=== PATIENT | female | born 1960 | race Caucasian/White ===

== ENCOUNTER 2017-03-26 17:40 | Emergency (ER) | payer BC ==
[~2017-03-26] VITALS: Ht 165.1 cm; Wt 68.4 kg
[2017-03-26 18:44] LABS: HEMATOCRIT 45.1 % (36.0-46.0); MCH 31.1 PG (29.0-34.0); MCHC 33.7 G/DL (30.0-36.0); MCV 92.4 FL (83-99); MEAN PLAT.VOLUME 10.1 uM^3 (9.5-12.4); PLATELET COUNT 299 K/uL (156-360); RBC DIS.WIDTH-CV 11.8 % (11.8-14.6); RBC DIS.WIDTH-SD 39.7 % (39-53); RED BLOOD COUNT 4.88 M/uL (3.80-5.20); WHITE BLOOD COUNT 9.1 K/uL (4.1-10.2)
[2017-03-26 18:52] LABS: CHLORIDE 104 mEq/L (99-109); POTASSIUM 4.6 mEq/L (3.7-5.4); SODIUM 140 mEq/L (136-147)
[2017-03-26 18:54] LABS: GLUCOSE 107 mg/dL (70-99)
[2017-03-26 18:55] LABS: ANION GAP 10 MEQ/L (2-14)
[2017-03-26 18:57] LABS: GFR ESTIMATE (CALCULATED) > 59 mL/min/
[2017-03-26 18:58] LABS: UREA NITROGEN (BUN) 11 mg/dL (9-23)
[2017-03-26 19:05] LABS: TROP-I INTERPRETATION NEGATIVE; TROPONIN-I < 0.01 ng/mL (0.0-0.30)
[2017-03-26] MEDS ORDERED: VALIUM2 MG PO (21:11)
[2017-03-26 21:22] VITALS: BP 134/84
== END 2017-03-26 21:38 | disposition home or self-care (01) ==
LOC: EME 17:40
DX: R07.9 Chest pain, unspecified (principal); R20.2 Paresthesia of skin; R06.02 Shortness of breath; M54.2 Cervicalgia; Y93.K1 Activity, walking an animal
CPT/HCPCS: 71020; 80048; 84484; 85027; 93005; 99281; 99284